=== PATIENT | female | born 1970 | race Caucasian/White ===

== ENCOUNTER → 2016-09-06 | Day surgery (SDC) | payer OTHER ==
[~2016-09-06] VITALS: Ht 162.6 cm; Wt 95.3 kg
[~2016-09-06] MED LIST: DIAZEPAM5 MG PO; ELAVIL25 MG PO; FUTURO RESTORI1 EACH MC; GABAPENTIN600 MG PO; HYDROCODON-ACE1 EAC5 PO; HYZAAR 50-121 TABLET PO; IMITREX100 MG PO; LOSARTAN POTAS100 MG PO; LYRICA150 MG PO; MELOXICAM15 MG PO; MORPHINE SULFAT15 M1 PO; PERCOCET 5/31 TABLET PO; PROMETHAZINE HC25 M1 PO; TORSEMIDE20 MG PO; ZANAFLEX4 M1 PO
== END | disposition home or self-care (01) ==
LOC: PAIN 07:34 → SDC 08:15
PROC: 3E0T3BZ Introduction of Anesthetic Agent into Peripheral Nerves and Plexi, Percutaneous Approach (ICD-10-PCS; principal; 2016-09-06)
PROC: 3E0T33Z Introduction of Anti-inflammatory into Peripheral Nerves and Plexi, Percutaneous Approach (ICD-10-PCS; principal; 2016-09-06)
DX: M47.896 Other spondylosis, lumbar region (principal); R20.0 Anesthesia of skin; M12.88 Other specific arthropathies, not elsewhere classified, other specified site; F17.200 Nicotine dependence, unspecified, uncomplicated; I10 Essential (primary) hypertension
CPT/HCPCS: J1030; J2250; J3010; S0020

== ENCOUNTER 2016-09-13 08:50 | Day surgery (SDC) | payer OTHER ==
[~2016-09-13] VITALS: Ht 162.6 cm; Wt 90.7 kg
== END 2016-09-13 10:25 | disposition home or self-care (01) ==
LOC: PAIN 08:50
DX: M47.816 Spondylosis without myelopathy or radiculopathy, lumbar region (principal); M54.5 Low back pain; F41.9 Anxiety disorder, unspecified; M12.88 Other specific arthropathies, not elsewhere classified, other specified site; G62.9 Polyneuropathy, unspecified; R20.0 Anesthesia of skin; R53.82 Chronic fatigue, unspecified; I10 Essential (primary) hypertension; F17.200 Nicotine dependence, unspecified, uncomplicated
CPT/HCPCS: J1030; J3010; S0020

== ENCOUNTER 2016-11-03 10:44 | Day surgery (SDC) | payer OTHER ==
[~2016-11-03] VITALS: Ht 162.6 cm; Wt 90.7 kg
[~2016-11-03 10:44] MED LIST changes: +ELAVIL50 MG PO; +HYDROCODON-ACE1 EAC9 PO; +LYRICA200 MG PO
== END 2016-11-03 13:30 | disposition home or self-care (01) ==
LOC: PAIN 10:44 → SDC 11:30 → PAIN 11:30
PROC: 015B3ZZ Destruction of Lumbar Nerve, Percutaneous Approach (ICD-10-PCS; principal; 2016-11-03)
DX: M47.816 Spondylosis without myelopathy or radiculopathy, lumbar region (principal); M54.5 Low back pain; F41.9 Anxiety disorder, unspecified; F17.200 Nicotine dependence, unspecified, uncomplicated; G62.9 Polyneuropathy, unspecified; R20.0 Anesthesia of skin; R53.82 Chronic fatigue, unspecified; R79.82 Elevated C-reactive protein (CRP); R70.0 Elevated erythrocyte sedimentation rate; I10 Essential (primary) hypertension; M19.90 Unspecified osteoarthritis, unspecified site
CPT/HCPCS: J1030; J2250; J3010; S0020

== ENCOUNTER 2016-11-10 07:51 | Day surgery (SDC) | payer OTHER ==
[~2016-11-10] VITALS: Ht 162.6 cm; Wt 90.7 kg
== END 2016-11-10 09:30 | disposition home or self-care (01) ==
LOC: PAIN 07:51 → SDC 08:30 → PAIN 08:30
PROC: 015B3ZZ Destruction of Lumbar Nerve, Percutaneous Approach (ICD-10-PCS; principal; 2016-11-10)
DX: M47.816 Spondylosis without myelopathy or radiculopathy, lumbar region (principal); M54.5 Low back pain; F17.200 Nicotine dependence, unspecified, uncomplicated; I10 Essential (primary) hypertension; M19.90 Unspecified osteoarthritis, unspecified site; Z79.891 Long term (current) use of opiate analgesic; Z88.5 Allergy status to narcotic agent; Z91.018 Allergy to other foods
CPT/HCPCS: J1030; J2250; J3010; S0020

== ENCOUNTER → 2017-09-26 | Outpatient (CLI) | payer OTHER ==
[~2017-09-26] MED LIST changes: +COZAAR100 MG PO; -ELAVIL50 MG PO; +ELAVIL75 MG PO; -HYZAAR 50-121 TABLET PO; +WELLBUTRIN XL300 MG PO
== END | disposition home or self-care (01) ==
LOC: CDC 10:24
DX: Z01.810 Encounter for preprocedural cardiovascular examination (principal); M25.572 Pain in left ankle and joints of left foot; M25.472 Effusion, left ankle; S82.62XA Displaced fracture of lateral malleolus of left fibula, initial encounter for closed fracture; S93.432A Sprain of tibiofibular ligament of left ankle, initial encounter; G90.09 Other idiopathic peripheral autonomic neuropathy; F17.210 Nicotine dependence, cigarettes, uncomplicated; R94.31 Abnormal electrocardiogram [ECG] [EKG]
CPT/HCPCS: 93000

== ENCOUNTER 2017-09-29 08:21 | Day surgery (SDC) | payer OTHER ==
[~2017-09-29] VITALS: Ht 162.6 cm; Wt 90.7 kg
[2017-09-29 09:16] VITALS: BP 106/55
[2017-09-29 09:53] LABS: HEMATOCRIT 40.8 % (36.0-46.0); HEMOGLOBIN 13.9 G/DL (11.9-15.5); MCH 32.3 PG (29.0-34.0); MCHC 34.1 G/DL (30.0-36.0); MCV 94.7 FL (83-99); PLATELET COUNT 284 K/uL (156-360); RBC DIS.WIDTH-CV 12.6 % (11.8-14.6); RBC DIS.WIDTH-SD 43.6 % (39-53); RED BLOOD COUNT 4.31 M/uL (3.80-5.20); WHITE BLOOD COUNT 8.9 K/uL (4.1-10.2)
[2017-09-29 14:20] VITALS: BP 129/61
[2017-09-29 15:00] VITALS: BP 118/60
== END 2017-09-29 15:20 | disposition home or self-care (01) ==
LOC: SDC
PROVIDERS: Orthopaedic Surgery Hand Surgery
PROC: 0QSK04Z Reposition Left Fibula with Internal Fixation Device, Open Approach (ICD-10-PCS; principal; 2017-09-29)
DX: S82.62XA Displaced fracture of lateral malleolus of left fibula, initial encounter for closed fracture (principal); S93.492A Sprain of other ligament of left ankle, initial encounter; G90.09 Other idiopathic peripheral autonomic neuropathy; F17.210 Nicotine dependence, cigarettes, uncomplicated; I10 Essential (primary) hypertension; G89.29 Other chronic pain; M54.5 Low back pain; Z79.891 Long term (current) use of opiate analgesic; Z82.49 Family history of ischemic heart disease and other diseases of the circulatory system; Z83.3 Family history of diabetes mellitus
CPT/HCPCS: 73610; 76000; 85027; C1713; J0131; J0690; J1100; J1170; J2250; J2405; J2795; J3010; S0020